=== PATIENT | male | born 1995 | race Caucasian/White ===

== ENCOUNTER 2018-05-08 23:08 | Emergency (ER) | payer OTHER ==
[~2018-05-08] VITALS: Ht 180.3 cm; Wt 105.0 kg
[2018-05-08] MEDS ORDERED: AMOXICILLIN500 MG PO (23:26)
[2018-05-08] MEDS ORDERED: PERCOCET 5/325M1 TAB PO (23:26)
[2018-05-08 23:51] VITALS: BP 148/79
== END 2018-05-08 23:56 | disposition home or self-care (01) ==
LOC: ED 23:08
DX: K08.89 Other specified disorders of teeth and supporting structures (principal)